=== PATIENT | male | born 1955 | race Caucasian/White ===

== ENCOUNTER → 2024-09-02 | Outpatient (REF) | payer OTHER ==
[2024-09-02 15:54] LABS: BASOPHILS % 0.5 % (0.0-1.0); EOSINOPHILS # (AUTO) 0.2 (0.0-0.4); EOSINOPHILS % 3.6 % (0.0-6.0); HEMATOCRIT 36.4 % (38.2-49.6); HEMOGLOBIN 11.9 g/dL (14.0-18.0); LYMPHOCYTES # (AUTO) 1.5 (1.0-3.2); LYMPHOCYTES % 24.8 % (18.0-39.1); MEAN CORPUSCULAR HEMOGLOBIN 27.9 pg (28-32); MEAN CORPUSCULAR HGB CONC 32.7 g/dL (31-35); MEAN CORPUSCULAR VOLUME 85.4 fL (81-99); MONOCYTES # (AUTO) 0.5 (0.2-0.8); MONOCYTES % 8.8 % (4.4-11.3); NEUTROPHILS # (AUTO) 3.6 (2.1-6.9); NEUTROPHILS % 61.6 % (38.7-80.0); PLATELET COUNT 296 x10e3/uL (140-360); RED BLOOD COUNT 4.26 x10e6/uL (4.3-5.7); WHITE BLOOD COUNT 5.89 x10e3/uL (4.8-10.8)
[2024-09-02 16:13] LABS: ALBUMIN 3.7 g/dL (3.5-5.0); ALBUMIN/GLOBULIN RATIO 1.1 (0.8-2.0); ANION GAP 14.7 mmol/L (8-16); BILIRUBIN,TOTAL 0.5 mg/dL (0.2-1.2); CALCIUM 8.8 mg/dL (8.4-10.2); CREATININE, SERUM 0.97 mg/dL (0.72-1.25); POTASSIUM 3.7 mmol/L (3.5-5.1)
== END ==
LOC: WCC 09:41
PROVIDERS: ATTEND Internal Medicine Infectious Disease
DX: L89.893 Pressure ulcer of other site, stage 3 (principal)
CPT/HCPCS: 36415; 80053; 85025

== ENCOUNTER → 2024-09-05 | Outpatient (REF) | payer OTHER | LOC: WCC 08:34 | PROVIDERS: ATTEND Internal Medicine Infectious Disease | DX: L89.893 Pressure ulcer of other site, stage 3 (principal) ==

== ENCOUNTER → 2024-09-09 | Outpatient (REF) | payer OTHER | LOC: WCC 08:58 | PROVIDERS: ATTEND Internal Medicine Infectious Disease | DX: L89.893 Pressure ulcer of other site, stage 3 (principal) ==

== ENCOUNTER → 2024-09-12 | Outpatient (REF) | payer OTHER | LOC: MRI 11:00 | PROVIDERS: ATTEND Internal Medicine Infectious Disease | DX: L89.893 Pressure ulcer of other site, stage 3 (principal) ==

== ENCOUNTER → 2024-09-23 | Outpatient (REF) | payer OTHER | LOC: WCC 10:18 | PROVIDERS: ATTEND Internal Medicine Infectious Disease | DX: L89.893 Pressure ulcer of other site, stage 3 (principal) ==

== ENCOUNTER → 2024-09-30 | Outpatient (REF) | payer OTHER | LOC: WCC 12:05 | PROVIDERS: ATTEND Internal Medicine Infectious Disease | DX: L89.893 Pressure ulcer of other site, stage 3 (principal); M86.172 Other acute osteomyelitis, left ankle and foot ==

== ENCOUNTER → 2024-10-02 | Outpatient (REF) | payer OTHER | LOC: EDSTATUS 10:00 → WCC 10:39 | PROVIDERS: ATTEND Nurse Practitioner Family | DX: L89.893 Pressure ulcer of other site, stage 3 (principal) ==